=== PATIENT | male | born 1945 | race Caucasian/White ===

== ENCOUNTER 2016-04-12 17:56 | Emergency (ER) | payer MEDICARE, MEDICAID ==
[~2016-04-12] VITALS: Ht 165.1 cm; Wt 80.5 kg
[2016-04-12] MEDS ORDERED: METF500T4 PO (18:01)
[2016-04-12 18:06] LABS: GLUCOSE,POINT OF CARE 330 MG/DL (70-110)
[2016-04-12] MEDS ORDERED: KETOROLAC TROMETHAMINE 60 MG/2 ML VIAL IM ONE (19:45)
[2016-04-12] MEDS ORDERED: HYDROCODONE/ACETAMINOPHEN 5-325 MG TABLET PO ONE (19:45)
[2016-04-12] MEDS ORDERED: CYCLOBENZAPRINE HCL 10 MG TABLET PO ONE (19:45)
[2016-04-12 21:47] VITALS: BP 141/71
== END 2016-04-12 21:51 | disposition home or self-care (01) ==
LOC: EMS 18:02
DX: M25.511 Pain in right shoulder (principal); M79.2 Neuralgia and neuritis, unspecified; E11.9 Type 2 diabetes mellitus without complications; I10 Essential (primary) hypertension
CPT/HCPCS: 29105; 73030; 82962; 96372; 99284; J1885